=== PATIENT | male | born 1965 | race Caucasian/White ===

== ENCOUNTER → 2017-10-12 | Outpatient (REF) | payer BC ==
[~2017-10-12] MED LIST: FAMO20TA28 PO; IBUP800T37 PO; SUCR1TAB85 PO
[2017-10-12 11:09] LABS: PLATELET COUNT, AUTOMATED 134 K/uL (150-450)
== END ==
PROVIDERS: ATTEND Family Medicine
DX: R07.9 Chest pain, unspecified (principal)
CPT/HCPCS: 82040; 82247; 82310; 82374; 82435; 82565; 82947; 83880; 84075; 84132; 84155; 84295; 84450; 84460; 84484; 84520; 85025; 85379

== ENCOUNTER 2017-10-13 11:45 | Emergency (ER) | payer BC ==
--- NOTE | 2017-10-13 11:48 | ER Report ---
History and Physical Time Seen By MD: 11:47 Hx. of Stated Complaint: sob, chest pain intermittantly since friday HPI/ROS 52 year old sent by urgent care, anxious tachycardic complains of mscp radiated to back. feels like its hard to swallow. no history of the same Remainder of the 14 system rev: Yes Allergies: Coded Allergies: No Known Drug Allergies (Unverified , 10/13/17) Home Meds Active Scripts Sucralfate (CARAFATE) 1 Gm Tablet, 1 GM PO QID, #60 TAB Take before meals and at bedtime. Crush the tablet and mix with water before taking. Prov:CAROLYNN VICKERS 10/13/17 Famotidine (PEPCID) 20 Mg Tablet, 20 MG PO QDAY, #10 TAB Prov:CAROLYNN VICKERS 10/13/17 Reported Medications Ibuprofen (IBUPROFEN) 800 Mg Tablet, 1 TAB PO QAM, TAB 10/13/17 Past Medical/Surgical History Hiatal hernia, appendectomy, chronic back pain Reviewed Nurses Notes: Yes Old Medical Records Reviewed: Yes Hx Smoking: No Exposure to Second Hand Smoke?: No Hx Substance Use Disorder: No Hx Alcohol Use: Yes Family History of: Other Constitutional Vital Sign - Last 24 Hours 10/13/17 10/13/17 10/13/17 10/13/17 11:50 11:51 12:00 12:09 Temp 98.4 Pulse 114 Resp 24 B/P (MAP) 138/82 (100) 138/82 144/88 (106) Pulse Ox 96 O2 Delivery Room Air O2 Flow Rate 2.0 10/13/17 10/13/17 10/13/17 10/13/17 12:15 12:20 12:30 13:00 Pulse 112 Resp 25 B/P (MAP) 109/72 (84) 114/76 (89) 111/60 (77) Pulse Ox 96 10/13/17 10/13/17 10/13/17 10/13/17 13:15 13:30 13:35 14:00 Pulse 101 99 Resp 10 25 B/P (MAP) 113/76 (88) 105/63 (77) Pulse Ox 97 98 10/13/17 10/13/17 10/13/17 10/13/17 14:05 14:30 14:35 15:00 Pulse 97 90 Resp 10 17 B/P (MAP) 106/64 (78) 117/70 (86) Pulse Ox 97 98 10/13/17 10/13/17 15:05 15:17 Pulse 92 Resp 20 B/P (MAP) 115/75 (88) Pulse Ox 97 Intake and Output 10/13/17 10/13/17 10/14/17 15:00 23:00 07:00 Intake Total 300 ml Balance 300 ml Physical Exam 52 year old alert anxious, tenzin tm non reddened throat neck supple no jvd, heart rate tachy, lungs cta, abd soft, no pulsatile mass, vera full peripheral pulses Medical Decision Making Data Points Result Diagram: 10/13/17 1156 10/13/17 1156 Laboratory Hematology Test 10/13/17 11:56 10/13/17 14:25 Red Blood Count 5.26 M/uL (4.00-5.60) Mean Corpuscular Volume 85.9 fL (80.0-96.0) Mean Corpuscular Hemoglobin 30.1 pg (26.0-33.0) Mean Corpuscular Hemoglobin Concent 35.0 g/dL (32.0-36.0) Red Cell Distribution Width 13.2 % (11.5-14.5) Mean Platelet Volume 8.7 fL (7.2-11.1) Neutrophils (%) (Auto) 88.4 % (39.4-72.5) Lymphocytes (%) (Auto) 5.1 % (17.6-49.6) Monocytes (%) (Auto) 5.5 % (4.1-12.4) Eosinophils (%) (Auto) 0.2 % (0.4-6.7) Basophils (%) (Auto) 0.8 % (0.3-1.4) Nucleated RBC Relative Count (auto) 0.0 /100WBC Neutrophils # (Auto) 7.2 K/uL (2.0-7.4) Lymphocytes # (Auto) 0.4 K/uL (1.3-3.6) Monocytes # (Auto) 0.4 K/uL (0.3-1.0) Eosinophils # (Auto) 0.0 K/uL (0.0-0.5) Basophils # (Auto) 0.1 K/uL (0.0-0.1) Nucleated RBC Absolute Count (auto) 0.00 K/uL Prothrombin Time 14.0 seconds (12.0-14.4) Prothromb Time International Ratio 1.08 Activated Partial Thromboplast Time 28 seconds (23-35) D-Dimer Quantitative (PE/DVT) 0.51 ug/ml (0-0.50) Sodium Level 136 mmol/L (137-145) Potassium Level 3.4 mmol/L (3.5-5.0) Chloride Level 102 mmol/L (98-107) Carbon Dioxide Level 19 mmol/L (22-30) Blood Urea Nitrogen 15 mg/dl (9-21) Creatinine 1.00 mg/dl (0.66-1.25) Glomerular Filtration Rate Calc > 60.0 Random Glucose 159 mg/dl (75-110) Calcium Level 8.8 mg/dl (8.4-10.2) Total Bilirubin 1.5 mg/dl (0.2-1.3) Aspartate Amino Transf (AST/SGOT) 60 U/L (0-35) Alanine Aminotransferase (ALT/SGPT) 98 U/L (0-56) Alkaline Phosphatase 82 U/L (0-126) B-Type Natriuretic Peptide 25 pg/ml (0-100) Total Protein 7.3 g/dl (6.3-8.2) Albumin 4.0 g/dl (3.5-5.0) Lipase 91 U/L (23-300) Troponin I < 0.012 ng/ml Chemistry Test 10/13/17 11:56 10/13/17 14:25 White Blood Count 8.1 k/uL (4.5-11.0) Red Blood Count 5.26 M/uL (4.00-5.60) Hemoglobin 15.8 g/dL (14.0-18.0) Hematocrit 45.2 % (42.0-52.0) Mean Corpuscular Volume 85.9 fL (80.0-96.0) Mean Corpuscular Hemoglobin 30.1 pg (26.0-33.0) Mean Corpuscular Hemoglobin Concent 35.0 g/dL (32.0-36.0) Red Cell Distribution Width 13.2 % (11.5-14.5) Platelet Count 140 K/uL (150-450) Mean Platelet Volume 8.7 fL (7.2-11.1) Neutrophils (%) (Auto) 88.4 % (39.4-72.5) Lymphocytes (%) (Auto) 5.1 % (17.6-49.6) Monocytes (%) (Auto) 5.5 % (4.1-12.4) Eosinophils (%) (Auto) 0.2 % (0.4-6.7) Basophils (%) (Auto) 0.8 % (0.3-1.4) Nucleated RBC Relative Count (auto) 0.0 /100WBC Neutrophils # (Auto) 7.2 K/uL (2.0-7.4) Lymphocytes # (Auto) 0.4 K/uL (1.3-3.6) Monocytes # (Auto) 0.4 K/uL (0.3-1.0) Eosinophils # (Auto) 0.0 K/uL (0.0-0.5) Basophils # (Auto) 0.1 K/uL (0.0-0.1) Nucleated RBC Absolute Count (auto) 0.00 K/uL Prothrombin Time 14.0 seconds (12.0-14.4) Prothromb Time International Ratio 1.08 Activated Partial Thromboplast Time 28 seconds (23-35) D-Dimer Quantitative (PE/DVT) 0.51 ug/ml (0-0.50) Glomerular Filtration Rate Calc > 60.0 Calcium Level 8.8 mg/dl (8.4-10.2) Total Bilirubin 1.5 mg/dl (0.2-1.3) Aspartate Amino Transf (AST/SGOT) 60 U/L (0-35) Alanine Aminotransferase (ALT/SGPT) 98 U/L (0-56) Alkaline Phosphatase 82 U/L (0-126) B-Type Natriuretic Peptide 25 pg/ml (0-100) Total Protein 7.3 g/dl (6.3-8.2) Albumin 4.0 g/dl (3.5-5.0) Lipase 91 U/L (23-300) Troponin I < 0.012 ng/ml Coagulation Test 10/13/17 11:56 Prothrombin Time 14.0 seconds Prothromb Time International Ratio 1.08 Activated Partial Thromboplast Time 28 seconds D-Dimer Quantitative (PE/DVT) 0.51 ug/ml EKG/Imaging Imaging FACILITY: [facility] PATIENT NAME: Alfredo Brooks : 1965 MR: [id number] V: [id number] EXAM DATE: ORDERING PHYSICIAN: CAROLYNN VICKERS TECHNOLOGIST: Location: [facility] [place] Patient: Alfredo Brooks : 1965 Visit/Account:[id number] Date of Sevice: 10/13/2017 ABDOMEN/PELVIS WITH CONTRAST HISTORY: sob difficulty swallowing TECHNIQUE: Following administration of IV contrast contiguous axial images acquired through the abdomen/pelvis. Coronal and sagittal reformatting also performed. Dose Lowering Technique One of the following dose optimization techniques was utilized in the performance of this exam: Automated exposure control; adjustment of the mA and/ or kV according to the patient's size; or use of an iterative reconstruction technique. Specific details can be referenced in the facility's radiology CT exam operational policy. CONTRAST: 75 mL Isovue-370 COMPARISON: None. FINDINGS: Visualized lung bases: Small calcified granuloma in the right upper lobe and left lower lobe Hepatobiliary: Negative. Spleen: Borderline enlarged Adrenals: Negative. Pancreas: Negative. Kidneys ureters or bladder: Negative. Genitalia: Surgical clips in the upper right scrotum GI: Negative. Vessels/spaces/nodes: Negative. Bones/soft tissues: Small umbilical hernia containing fat Additional findings: None pertinent. IMPRESSION: Evidence for prior granulomatous process Borderline splenomegaly Report Dictated By: Oneyda Howe MD at 10/13/2017 1:22 PM Report E-Signed By: Oneyda Howe MD at 10/13/2017 1:47 PM WSN:[email or web address]: [facility] PATIENT NAME: Alfredo Brooks : 1965 MR: [id number] V: [id number] EXAM DATE: [id number] ORDERING PHYSICIAN: CAROLYNN VICKERS TECHNOLOGIST: Location: [facility] [place] Patient: Alfredo Brooks : 1965 Visit/Account:[id number] Date of Sevice: 10/13/2017 CT ANGIOGRAM OF THE CHEST WITH INTRAVENOUS CONTRAST, PE PROTOCOL DATE OF EXAM: 10/13/2017 12:03 COMPARISON: None INDICATION: Shortness of breath and tachycardia TECHNIQUE: Contrast enhanced chest CT performed during the injection of 75 ml of Isovue-370. Three-dimensional (MIP) reconstructions were performed. FINDINGS: There is no pulmonary arterial filling defect. Mild dependent atelectasis. No consolidation or pneumothorax. Thyroid: Normal Thoracic inlet: No adenopathy. Heart and great vessels: Coronary atherosclerosis is noted. Heart size is normal. Mediastinum and tim: No mediastinal or hilar adenopathy. Lungs and pleura: As above. Breast and axilla: Minimal symmetric gynecomastia. Bones and soft tissues: No acute osseous abnormality. Upper abdomen: Unremarkable. IMPRESSION: Negative for pulmonary arterial embolus. One of the following dose optimization techniques was utilized in the performance of this exam: Automated exposure control; adjustment of the mA and/ or kV according to the patient's size; or use of an iterative reconstruction technique. Specific details can be referenced in the facility's radiology CT exam operational policy. Report Dictated By: Antione Mullen MD at 10/13/2017 1:50 PM Report E-Signed By: Antione Mullen MD at 10/13/2017 1:59 PM WSN:[id number] ED Course/Re-evaluation Clinical Indication for ER IV: Hydration ED Course differential includes acs, pe and dissecting aortic aneurysm. these were disproved w imaging and lab, will send to surg for egd. nothing positive in todays reid. home w pepcid and carafate Re-evaluation pain free on dismissal Decision to Disposition Date: Oct 13, 2017 Decision to Disposition Time: 15:10 Depart Departure Latest Vital Signs Vital Signs Date Time Temp Pulse Resp B/P (MAP) Pulse Ox O2 Delivery O2 Flow Rate FiO2 10/13/17 15:17 115/75 (88) 10/13/17 15:05 92 20 97 10/13/17 12:09 2.0 10/13/17 11:51 98.4 Room Air Impression: Primary Impression: Atypical chest pain Additional Impression: Gastritis Condition: Improved Disposition: HOME OR SELF-CARE Referrals: KASHIF SINGH MD 1 Day New Scripts Sucralfate (CARAFATE) 1 Gm Tablet 1 GM PO QID, #60 TAB Take before meals and at bedtime. Crush the tablet and mix with water before taking. Prov: CAROLYNN VICKERS 10/13/17 Famotidine (PEPCID) 20 Mg Tablet 20 MG PO QDAY, #10 TAB Prov: CAROLYNN VICKERS 10/13/17 Departure Forms: ER Transition Record, Medications Reconciliation, Patient Portal Information Patient Instructions: Gastritis (ED) Additional Instructions: Call Dr. Bowen's office for close follow-up for an EGD, follow-up with your primary care provider for further testing for your atypical chest pain Problem Qualifiers CAROLYNN VICKERS Oct 13, 2017 11:48
[2017-10-13] MEDS ORDERED: NS(*) 0.9% 1000 ML BAG 1,000 ML IV ONE (12:03)
[2017-10-13] MEDS ORDERED: ASPIRIN 81 MG CHEW PO ONE (12:05)
[2017-10-13] MEDS ORDERED: NITROGLYCERIN 0.4 MG SUBL SL SCH (12:05)
[2017-10-13] MEDS ORDERED: IBUP800T37 PO (12:06)
--- NOTE | 2017-10-13 12:07 | EKG ---
FACILITY: [facility] - [place] PATIENT NAME: ZA CARRASQUILLO : [id number] MR: [id number] V: [id number] EXAM DATE: ORDERING PHYSICIAN: CAROLYNN VICKERS TECHNOLOGIST: ONELIA Wolf Reason : Blood Pressure : / mmHG Vent. Rate : 110 BPM Atrial Rate : 110 BPM P-R Int : 146 ms QRS Dur : 090 ms QT Int : 316 ms P-R-T Axes : 052 043 019 degrees QTc Int : 427 ms Sinus tachycardia Otherwise normal ECG When compared with ECG of 26-NOV-2016 11:53, Vent. rate has increased BY 52 BPM T wave amplitude has decreased in Anterolateral leads Confirmed by KASHIF RAMOS ([id number]) on 10/14/2017 6:26:59 AM Referred By: Confirmed By:KASHIF RAMOS
[2017-10-13 12:17] LABS: PLATELET COUNT, AUTOMATED 140 K/uL (150-450)
[2017-10-13 12:26] LABS: INR 1.08
[2017-10-13] MEDS ORDERED: IOPAMIDOL 76% 75 ML INFUS BTL 75 ML ONE (12:33)
[2017-10-13] MEDS ORDERED: NS 0.9% 25 ML BAG 50 ML ONE (12:35)
--- NOTE | 2017-10-13 13:51 | RADIOLOGY IMAGING REPORT ---
FACILITY: [facility] [place] PATIENT NAME: Alfredo Brooks : 1965 MR: [id number] V: [id number] EXAM DATE: ORDERING PHYSICIAN: CAROLYNN VICKERS TECHNOLOGIST: Location: [facility] [place] Patient: Alfredo Brooks : 1965 Visit/Account:[id number] Date of Sevice: 10/13/2017 ABDOMEN/PELVIS WITH CONTRAST HISTORY: sob difficulty swallowing TECHNIQUE: Following administration of IV contrast contiguous axial images acquired through the abdom en/pelvis. Coronal and sagittal reformatting also performed. Dose Lowering Technique One of the following dose optimization techniques was utilized in the performance of this exam: Autom ated exposure control; adjustment of the mA and/or kV according to the patient's size; or use of an i terative reconstruction technique. Specific details can be referenced in the facility's radiology C T exam operational policy. CONTRAST: 75 mL Isovue-370 COMPARISON: None. FINDINGS: Visualized lung bases: Small calcified granuloma in the right upper lobe and left lower lobe Hepatobiliary: Negative. Spleen: Borderline enlarged Adrenals: Negative. Pancreas: Negative. Kidneys ureters or bladder: Negative. Genitalia: Surgical clips in the upper right scrotum GI: Negative. Vessels/spaces/nodes: Negative. Bones/soft tissues: Small umbilical hernia containing fat Additional findings: None pertinent. IMPRESSION: Evidence for prior granulomatous process Borderline splenomegaly Report Dictated By: Oneyda Howe MD at 10/13/2017 1:22 PM Report E-Signed By: Oneyda Howe MD at 10/13/2017 1:47 PM WSN:[email or web address]
--- NOTE | 2017-10-13 14:04 | RADIOLOGY IMAGING REPORT ---
FACILITY: [facility] - [place] PATIENT NAME: Alfredo Brooks : 1965 MR: [id number] V: [id number] EXAM DATE: ORDERING PHYSICIAN: CAROLYNN VICKERS TECHNOLOGIST: Location: [facility] Patient: Alfredo Brooks : 1965 Visit/Account:[id number] Date of Sevice: 10/13/2017 CT ANGIOGRAM OF THE CHEST WITH INTRAVENOUS CONTRAST, PE PROTOCOL DATE OF EXAM: 10/13/2017 12:03 COMPARISON: None INDICATION: Shortness of breath and tachycardia TECHNIQUE: Contrast enhanced chest CT performed during the injection of 75 ml of Isovue-370. Three-d imensional (MIP) reconstructions were performed. FINDINGS: There is no pulmonary arterial filling defect. Mild dependent atelectasis. No consolidation or pneumo thorax. Thyroid: Normal Thoracic inlet: No adenopathy. Heart and great vessels: Coronary atherosclerosis is noted. Heart size is normal. Mediastinum and tim: No mediastinal or hilar adenopathy. Lungs and pleura: As above. Breast and axilla: Minimal symmetric gynecomastia. Bones and soft tissues: No acute osseous abnormality. Upper abdomen: Unremarkable. IMPRESSION: Negative for pulmonary arterial embolus. One of the following dose optimization techniques was utilized in the performance of this exam: Autom ated exposure control; adjustment of the mA and/or kV according to the patient's size; or use of an i terative reconstruction technique. Specific details can be referenced in the facility's radiology C T exam operational policy. Report Dictated By: Antione Mullen MD at 10/13/2017 1:50 PM Report E-Signed By: Antione Mullen MD at 10/13/2017 1:59 PM WSN:[id number]
[2017-10-13] MEDS ORDERED: GI COCKTAIL 60 ML BTL PO STA (14:09)
[2017-10-13] MEDS ORDERED: FAMOTIDINE(*) 20MG/50ML PREMIX 50 ML IVPB ONE (14:20)
[2017-10-13] MEDS ORDERED: LIDOCAINE 2% VISC SLN 15ML UDC PO ONE (14:25)
[2017-10-13] MEDS ORDERED: ATRO/SCOPOL/HYOSCY/PB 5 ML ELX PO ONE (14:25)
[2017-10-13] MEDS ORDERED: MAG HYD/AL HYD/SIMETH 30ML UDC PO ONE (14:25)
--- NOTE | 2017-10-13 14:31 | EKG ---
FACILITY: [facility] PATIENT NAME: ZA CARRASQUILLO : [id number] MR: [id number] V: [id number] EXAM DATE: ORDERING PHYSICIAN: CAROLYNN VICKERS TECHNOLOGIST: ONELIA Wolf Reason : Blood Pressure : / mmHG Vent. Rate : 095 BPM Atrial Rate : 095 BPM P-R Int : 142 ms QRS Dur : 092 ms QT Int : 344 ms P-R-T Axes : 054 041 014 degrees QTc Int : 432 ms Normal sinus rhythm Normal ECG When compared with ECG of 13-OCT-2017 12:01, No significant change was found Confirmed by KASHIF RAMOS ([id number]) on 10/14/2017 6:27:28 AM Referred By: Confirmed By:KASHIF RAMOS
[2017-10-13] MEDS ORDERED: SUCR1TAB85 PO (15:05)
[2017-10-13] MEDS ORDERED: FAMO20TA28 PO (15:05)
[2017-10-13 15:17] VITALS: BP 115/75
[2017-10-14] MEDS ORDERED: OMEP40CA48 PO (12:07)
== END 2017-10-13 15:27 | disposition home or self-care (01) ==
LOC: ER 11:51
DX: R07.89 Other chest pain (principal); K29.70 Gastritis, unspecified, without bleeding; R00.0 Tachycardia, unspecified
CPT/HCPCS: 36415; 71275; 74177; 83690; 83880; 84484; 85025; 85379; 85610; 85730; 93005; 96361; 96365; 99285; J3490; J7030; Q9967; 82040; 82247; 82310; 82374; 82435; 82565; 82947; 84075; 84132; 84155; 84295; 84450; 84460; 84520

== ENCOUNTER 2017-10-14 12:25 | Inpatient (IN) | payer BC ==
[~2017-10-14] VITALS: Ht 177.8 cm; Wt 93.4 kg
[~2017-10-14 12:25] MED LIST changes: +OMEP40CA48 PO
[2017-10-14] MEDS ORDERED: HYDROmorphone PCA 6 MG/30 ML IV PRN (13:10)
[2017-10-14] MEDS ORDERED: ONDANSETRON 4 MG/2 ML VIAL IVP PRN (13:10)
[2017-10-14] MEDS ORDERED: NALOXONE HCL 0.4 MG/ML VIAL IVP PRN (13:10)
[2017-10-14] MEDS ORDERED: PROMETHAZINE 25 MG/ML 1 ML AMP IVP PRN (13:10)
[2017-10-14] MEDS ORDERED: FLUSH 10 ML SYR IVP PRN (13:10)
[2017-10-14] MEDS ORDERED: DIATRIZOATE MEGL/DIATRIZOA SOD 120 ML SOLN PO ONE (13:32)
[2017-10-14] MEDS ORDERED: BARIUM SULFATE 340 GM POWD ONE (13:32)
[2017-10-14] MEDS ORDERED: BARIUM SULFATE 176 GM BTL PO ONE (13:32)
[2017-10-14 13:39] VITALS: BP 128/80
--- NOTE | 2017-10-14 13:47 | Gen Surgery H&P BLANK ---
GENERAL SURGERY H&P BLANK Chief Complaint: ER F/U Swallowing Problem. EGD Consult Reviewed by: Dr. Kashif Singh Vitals: Height 5 ft 11 in / 180.34 cm Weight 208 lbs 4 oz / 94.619531 kg BSA 2.20 m2 BMI 29.0 kg/m2 Temperature 102.6 F / 39.22 C - Temporal Pulse 116 Respirations 15 Blood Pressure 113/77 Sitting, Left Arm Pulse Oximetry 94%, RA Pain Ratin Pain Scale: Number Location / Description of Pain when swallowing Medications and Allergies Medications Last Reconciled on 10/14/17 12:07 by LEONARDA PATEL, RN Omeprazole (OMEPRAZOLE) Unknown Strength Capsule.dr JACMKAN QDAY, CAP Reported 10/14/17 Sucralfate (CARAFATE) 1 Gm Tablet 1 GM PO QID, #60 TAB Prov: CAROLYNN VICKERS APRN-Steve 10/13/17 Famotidine (PEPCID) 20 Mg Tablet 20 MG PO QDAY, #10 TAB Prov: CAROLYNN VICKERS 10/13/17 Ibuprofen (IBUPROFEN) 800 Mg Tablet 1 TAB PO QAM, TAB Reported 10/13/17 Allergies: Coded Allergies: No Known Drug Allergies (Unverified , 10/13/17) Past History (PFSH) - General Past, Family, & Social History Past Surgical History Genitourinary: Reports hx of: vasectomy R. knee - 2017 Family History Family History: FH: hepatitis MOTHER, , Age:72 Tobacco Use Smoking Status: Never Smoker Exposure to Second Hand Smoke?: No Smokeless Tobacco Used: Never Alcohol Use Alcohol Use: Never Substance Use Social Drug Use: Never HPI - GI complaint* History of Present Illness History of Present Illness HPI Comment 52-year-old male presents with 5 days of dysphagia with lower chest pain going through to his back. He has a long history of intermittent dysphagia. He was eating a hamburger 5 days ago and it seemed to pass without problems but then he developed subsequent significant lower chest pain. He was seen in urgent care and felt a little better but then worsened and yesterday was seen in the emergency room. He underwent a chest CT as well as a CT of his abdomen and pelvis. These were relatively unremarkable and did not reveal any evidence of extraluminal gas or inflammation. He was started on PPI therapy and Carafate. He notes that he has been limited to drinking fluids. He's had 2 eggs but little else to eat. He feels that when he eats, the food hits his mid chest and seems to stop. He has been having fevers and chills. No constipation or diarrhea. His bowels are moving normally. He is urinating without problems. He' s had no abdominal pain. He denies any nausea or vomiting, no hematemesis. Review of Systems Review of Systems Constitutional Constitutional ROS: Reports: night sweats, fever, chills, Denies: unintentional weight loss, other Neurological Neurological ROS: Denies: lightheadedness/dizziness, vertigo, other Eyes EYE ROS: Denies: new/intermitt vision prob, scleral icterus, other Ears, Nose and Throat ENT ROS: Denies: recurring epistaxis, hoarseness, other Cardiopulmonary Cardiopulmonary ROS: Reports: chest pain, Denies: chronic cough, shortness of breath, hemoptysis, claudication, lower extremity edema, other Gastrointestinal Gastrointestinal ROS: Reports: dysphagia, Denies: nausea, vomiting, early satiety, diarrhea, hematemesis, abdominal pain, constipation, hematochezia, regurgitation, melena, other Genitourinary Genitourinary ROS: Denies: dysuria, hematuria, other Musculoskeletal Musculoskeletal ROS: Denies: joint pain, muscle pain ROS Reviewed by ROS Reviewed by: Dr. Kashif Singh Exam Exam General Appearance: Alert, Awake, No Acute Distress, Afebrile Neuro: No Gross deficits Eyes: PERRLA Cardiovascular: Regular Rate and Rhythm (tachycardic) Respiratory: Clear to Auscultation GI: Abd Soft and Non-Tender Extremities: Warm, Perfused Assessment and Plan Assessment and Plan Ambulatory Assessment/Plan: Esophageal injury Injury of esophagus, initial encounter - S27.819A Encounter type: initial encounter Atypical chest pain - R07.89 Notes Patient is having fevers, he is 102.6 Fahrenheit here in the office as well as a pulse of 116. This in conjunction with his chest pain with back pain and subjective fevers and chills with inability to eat, I recommended admission to the hospital. He is agreeable with this plan. We will admit him, deep him nothing by mouth, start IV fluids, check basic labs, start PPI IV, start IV antibiotics to treat for possible esophageal injury that can progress to mediastinitis given his fevers, chills, and other symptoms. We'll get a water- soluble esophagram today and if there is no evidence of extraluminal contrast then they can use barium. We'll plan on EGD tomorrow or the next day. He is agreeable with this plan. Venous Thromboembolism VTE Risk Physician Assess for VTE Risk: Yes Patient's VTE Risk: Low VTE Diagnostic Test 2 Days Prior to Admit: No Antithrombotics Is Pt On Any Antithrombotics?: No KASHIF SINGH MD Oct 14, 2017 13:47
[2017-10-14] MEDS: ACETAMINOPHEN(*)1000 MG/100 ML 100 ML IVPB PRN ×2 (13:53→23:25)
[2017-10-14] MEDS: PIPERACILLIN/TAZO*3.375GM VIAL 3.375 GM in NS(*) 0.9% 100 ML ADDVANT BAG 100 ML IVPB SCH ×2 (14:34→20:19)
[2017-10-14 14:53] VITALS: Ht 177.8 cm; Wt 93.4 kg
[2017-10-14 15:20] LABS: PLATELET COUNT, AUTOMATED 130 K/uL (150-450)
[2017-10-14 16:20] VITALS: BP 114/76
[2017-10-14] MEDS ORDERED: PANTOPRAZOLE SOD 40 MG IV VIAL IVP ONE (16:30)
[2017-10-14] MEDS: NS(*) 0.9% 1000 ML BAG 1,000 ML IV PRN (16:43)
--- NOTE | 2017-10-14 17:34 | RADIOLOGY IMAGING REPORT ---
FACILITY: [facility] - [place] PATIENT NAME: Alfredo Brooks : 1965 MR: [id number] V: [id number] EXAM DATE: ORDERING PHYSICIAN: KASHIF SINGH TECHNOLOGIST: Location: [facility] Patient: Alfredo Brooks : 1965 Visit/Account:[id number] Date of Sevice: 10/14/2017 Exam type: ESOPHAGRAM History: Dysphagia, chest pain, fevers, r/o perforation Comparison: None. Findings: The patient was first given a Gastrografin suspension to swallow in light of the concern for possible esophageal perforation. There is no evidence of esophageal perforation or pneumomediastinum. The patient then received both thick and thin barium as an oral contrast. Extensive mucosal irregula rity was seen throughout the esophagus particularly the midesophagus which is best appreciated in ser ies 5, six, seven and eight. Is a possible ulceration in the midesophagus just above the level of th e tristan; this is best seen in series 7 and eight and nine. Gastro-esophageal reflux was not observed The fluoroscopy dose area product was 442.13 micro-Thomas per meter squared IMPRESSION: 1. No evidence of esophageal perforation Extensive mucosal irregularity was seen throughout the esophagus particularly in the mid portion as d escribed above. This finding is concerning for esophagitis. There is a possible ulceration in the m idesophagus just above the level of the tristan Report Dictated By: Oneyda Howe MD at 10/14/2017 5:21 PM Report E-Signed By: Oneyda Howe MD at 10/14/2017 5:29 PM WSN:[email or web address]
[2017-10-14 18:46] VITALS: BP 120/83
[2017-10-14 23:01] VITALS: BP 116/56
[2017-10-14] MEDS: HYDROmorphone HCL 2 MG/ML SDV IVP PRN (23:25)
[2017-10-15] VITALS (14 sets, daily range): BP systolic 98–144; BP diastolic 60–89
[2017-10-15] MEDS: PIPERACILLIN/TAZO*3.375GM VIAL 3.375 GM in NS(*) 0.9% 100 ML ADDVANT BAG 100 ML IVPB SCH ×4 (01:56→20:14)
[2017-10-15 06:11] LABS: PLATELET COUNT, AUTOMATED 114 K/uL (150-450)
[2017-10-15] MEDS: HYDROmorphone HCL 2 MG/ML SDV IVP PRN ×3 (06:18→20:13)
--- NOTE | 2017-10-15 07:09 | General Surgery Progress Note ---
Subjective Progress Notes Subjective No new complaints. Had pain overnight in his lower chest even though he hasn't eaten, took some dilaudid. Now better. Physical Exam Vital Signs Date Time Temp Pulse Resp B/P (MAP) Pulse Ox O2 Delivery O2 Flow Rate FiO2 10/15/17 02:02 98.5 16 87 Room Air 1.0 10/14/17 23:01 97 116/56 (76) General Appearance: Alert, Awake, No Acute Distress, Afebrile GI: Soft and Non-Tender Extremities: Warm, Perfused Result Diagram: 10/15/17 0548 10/15/1748 Assessment and Plan Problems: (1) Esophageal injury Status: Acute Assessment & Plan: 10/15/17: Doing well. WBC down, left shift resolved. Fever last night, afebrile this morning. Vitals look good. Esophagram reveals very "ratty" appearing esophagus, possibly esophagitis, possible esophageal ulcers. Will proceed with EGD today. Pt agreeable with this plan. Will hold off on diet until after EGD. (2) Atypical chest pain Status: Acute Condition Stable. Time Spent: < 30 min Exam Sepsis Risk: No Definite Risk Problem Qualifiers (1) Esophageal injury: Encounter type: subsequent encounter Qualified Codes: S27.819D - Unspecified injury of esophagus (thoracic part), subsequent encounter KASHIF SINGH MD Oct 15, 2017 07:09
[2017-10-15] MEDS: ACETAMINOPHEN(*)1000 MG/100 ML 100 ML IVPB PRN ×2 (08:48→20:22)
[2017-10-15] MEDS: NS(*) 0.9% 1000 ML BAG 1,000 ML IV PRN ×2 (08:53→20:23)
[2017-10-15] MEDS ORDERED: PANTOPRAZOLE SOD 40 MG IV VIAL IVP SCH (09:00)
[2017-10-15] MEDS ORDERED: NORMOSOL R SOLN(*) 1000 ML BAG 1,000 ML IV ONE (12:27)
--- NOTE | 2017-10-15 14:10 | Medical Nutrition Therapy ---
Nutrition Anthropometrics Height (Inches): 70.00 Height (Calculated Centimeters: 177.907241 Weight (Pounds): 206 Weight (Calculated Kilograms): 93.440 Ace Nutrition Score: Excellent Ace Nutrition Risk Score: 23 Dietary Referral Nutrition Risk Factors: Diff. Swallowing, Special Diet Nutrition Risk Comment: NPO Physical Findings Physical Appearance: Overweight BMI 25-29 Skin Appearance Skin Appearance: Edema Edema Location Modifier: Edema Location: Type of Edema: Degree of Edema: Gastrointestinal Symptoms GI Symtoms: Change in Bowel Pattern Tube Present: Bowel Sounds: Recent Bowel Pattern: Stool Characteristics: Nutrition/Food History Difficulty Swallowing Nutritional Diagnosis Nutritional Risk Acuity 2: Dysphagia Nutritional Risk Acuity 3: Gastritis/Gastroenteritis Past Medical History: Gastritis, atypical chest pain, esophageal injury Nutritional Acuity: 2-Moderate Nutrition Diagnosis: Inadequate Food Intake Nutrition Problem/Etiology/Sym: Inadequate oral intake related to dysphagia as evidence by pt having a hard time consuming liquid beverages and diet ordered NPO. Energy Requirement: 2171 ([place] Adj BMI >27.5 AF 1.3 ) Protein Requirement: 93 (1g/kg) Fluid Requirement: 2790 (30ml/kcal ) Diet Type: NPO (Nothing by Mouth) Nutrition Intervention: Incr diet as tolerated Nutrition Monitoring & Eval Nutrition Goals: Eat 50-100% Meal RD Patient Assessment Time: [address] Assessment Type: RD Assessment Patient Nutrition Acuity: 2-Moderate Follow Up Date: Oct 17, 2017 Nutritional Comment: 10/14 Pt admitted for dysphagia and chest pain.Pt has chills and fever of 102.6F. Pt states over the past 5 days it has been difficult to swallow food, especially liquids. Pt has hx of intermittent dysphagia. Pt is on NPO diet. No lab values taken at this time. Will continue to monitor pt progress and diet advancement. -SC 10/15 No complaints or fever this morning. Pt is scheduled for EGD sometime today, once that is done possible diet change. Pt is on 2 day NPO. Per doctor note pt may possible have esophagitis or ulcers. Pt has elevated LFTS and slight low alb (3.2). Will continue to monitor pt progress, labs and diet advancement.-SC ANTOINETTE SPENCER Oct 15, 2017 08:25
[2017-10-15] MEDS ORDERED: PROPOFOL EMUL(*) 10MG/ML 20 ML 40 ML ONE (17:11)
[2017-10-15] MEDS ORDERED: LIDOCAINE MPF 1% 5 ML VIAL ONE (17:11)
[2017-10-15] MEDS: NYSTATIN 5 ML UDCUP PO SCH ×2 (18:12→20:22)
[2017-10-15] MEDS: SUCRALFATE 1 GM TAB PO SCH (20:23)
[2017-10-15] MEDS: PANTOPRAZOLE SOD 40 MG IV VIAL IVP SCH (20:23)
[2017-10-16] MEDS: PIPERACILLIN/TAZO*3.375GM VIAL 3.375 GM in NS(*) 0.9% 100 ML ADDVANT BAG 100 ML IVPB SCH ×4 (01:36→19:32)
[2017-10-16 02:26] VITALS: BP 120/70
[2017-10-16] MEDS: HYDROmorphone HCL 2 MG/ML SDV IVP PRN ×2 (02:26→22:18)
[2017-10-16] MEDS: SUCRALFATE 1 GM TAB PO SCH ×4 (05:49→21:04)
[2017-10-16 06:50] VITALS: BP 118/76
[2017-10-16] MEDS: NS(*) 0.9% 1000 ML BAG 1,000 ML IV PRN (06:52)
[2017-10-16 07:00] LABS: PLATELET COUNT, AUTOMATED 132 K/uL (150-450)
[2017-10-16] MEDS ORDERED: NS(*) 0.9% 1000 ML BAG 1,000 ML IV PRN (08:19)
[2017-10-16] MEDS: PANTOPRAZOLE SOD 40 MG IV VIAL IVP SCH ×2 (08:26→21:05)
[2017-10-16] MEDS: NYSTATIN 5 ML UDCUP PO SCH ×4 (08:26→21:08)
[2017-10-16 11:32] VITALS: BP 118/76
[2017-10-16] MEDS: ACETAMINOPHEN(*)1000 MG/100 ML 100 ML IVPB PRN ×2 (13:26→19:32)
[2017-10-16 15:32] VITALS: BP 128/69
--- NOTE | 2017-10-16 15:36 | General Surgery Progress Note ---
Subjective Progress Notes Subjective Feeling pretty good today. Some liquids hurt his esophagus as they pass. Beef broth feels good. Overall, feeling better. Physical Exam Vital Signs Date Time Temp Pulse Resp B/P (MAP) Pulse Ox O2 Delivery O2 Flow Rate FiO2 10/16/17 11:32 99.7 89 24 118/76 (90) 92 Room Air 10/16/17 02:26 1.0 Intake and Output 10/17/17 07:00 Intake Total 880 ml Balance 880 ml Intake Oral 580 ml IV Total 300 ml # Voids 2 General Appearance: Alert, Awake, No Acute Distress, Afebrile GI: Soft and Non-Tender Extremities: Warm, Perfused Result Diagram: 10/16/17 0637 10/16/17 0637 Assessment and Plan Problems: (1) Esophageal injury Status: Acute Assessment & Plan: 10/15/17: Doing well. WBC down, left shift resolved. Fever last night, afebrile this morning. Vitals look good. Esophagram reveals very "ratty" appearing esophagus, possibly esophagitis, possible esophageal ulcers. Will proceed with EGD today. Pt agreeable with this plan. Will hold off on diet until after EGD. 10/16/17: Doing better. Labs and vitals look good. Will try soft diet. If he does well with this then tomorrow will try converting him to PO meds, liquid, if possible. If he does well on liquid/po meds and diet then home later tomorrow vs Friday. (2) Atypical chest pain Status: Acute Condition Stable. Time Spent: < 30 min Exam Sepsis Risk: No Definite Risk Problem Qualifiers (1) Esophageal injury: Encounter type: subsequent encounter Qualified Codes: S27.819D - Unspecified injury of esophagus (thoracic part), subsequent encounter KASHIF SINGH MD Oct 16, 2017 15:36
[2017-10-16 19:27] VITALS: BP 132/78
[2017-10-16 22:24] VITALS: BP 147/85
[2017-10-17] MEDS: PIPERACILLIN/TAZO*3.375GM VIAL 3.375 GM in NS(*) 0.9% 100 ML ADDVANT BAG 100 ML IVPB SCH (01:57)
[2017-10-17 02:43] VITALS: BP 128/80
[2017-10-17] MEDS: HYDROmorphone HCL 2 MG/ML SDV IVP PRN ×2 (03:02→20:57)
[2017-10-17] MEDS: SUCRALFATE 1 GM TAB PO SCH ×4 (05:53→20:32)
[2017-10-17] MEDS ORDERED: LANSOPRAZOLE 3 MG/ML PO ONE (08:00)
[2017-10-17 08:34] VITALS: BP 122/83
[2017-10-17] MEDS: LANSOPRAZOLE 3 MG/ML PO SCH (08:47)
[2017-10-17] MEDS: AMOX/CLAV 400 MG/5 ML 50ML BTL PO SCH ×2 (09:40→20:31)
[2017-10-17] MEDS: NYSTATIN 5 ML UDCUP PO SCH ×4 (09:40→20:32)
[2017-10-17 11:13] VITALS: BP 117/83
--- NOTE | 2017-10-17 11:20 | Medical Nutrition Therapy ---
Nutrition Anthropometrics Height (Inches): 70.00 Height (Calculated Centimeters: 177.844469 Weight (Pounds): 206 Weight (Calculated Kilograms): 93.440 Ace Nutrition Score: Adequate Ace Nutrition Risk Score: 22 Dietary Referral Nutrition Risk Factors: Diff. Swallowing, Special Diet Nutrition Risk Comment: NPO Physical Findings Physical Appearance: Overweight BMI 25-29 Skin Appearance Skin Appearance: Edema Edema Location Modifier: Edema Location: Type of Edema: Degree of Edema: Gastrointestinal Symptoms GI Symtoms: Bloating, Diarrhea, Change in Bowel Pattern Tube Present: Bowel Sounds: Recent Bowel Pattern: Stool Characteristics: Nutritional Diagnosis Nutritional Risk Acuity 2: Dysphagia, Swallowing Problem Nutritional Risk Acuity 3: Gastritis/Gastroenteritis Past Medical History: Gastritis, atypical chest pain, esophageal injury Nutritional Acuity: 2-Moderate Nutrition Diagnosis: Swallowing Difficulties Nutrition Problem/Etiology/Sym: Swallowing difficulites related to esphagial injury as evidence by pt having problems consuming solids with intake 25% . Energy Requirement: 2171 (Lovell [place] Adj BMI >27.5 AF 1.3 ) Protein Requirement: 93 (1g/kg) Fluid Requirement: 2790 (30ml/kcal ) Diet Type: [place]/Soft Nutrition Intervention: Incr diet as tolerated Food Likes: CREM OF WHEAT, ASK PT IF HE WOULD LIKE HIS MEAT GROUND Food Dislikes: NO RAW FRUITS/VEG, NOTHING THAT WOULD SCRATCH HIS THROAT Additional Diet Restrictions: OFFER NUTR SUPPLMENTS Diet Comment To RSA: PT DOES BEST WITH SMOOTH TEXTURES Nutrition Monitoring & Eval Nutrition Goals: Eat 75-100% Meal Nutrition Follow-Up: Poor Intake RD Patient Assessment Time: [address] Assessment Type: RD Re-Assessment Patient Nutrition Acuity: 2-Moderate Follow Up Date: Oct 21, 2017 Nutritional Comment: 10/14 Pt admitted for dysphagia and chest pain.Pt has chills and fever of 102.6F. Pt states over the past 5 days it has been difficult to swallow food, especially liquids. Pt has hx of intermittent dysphagia. Pt is on NPO diet. No lab values taken at this time. Will continue to monitor pt progress and diet advancement. -MT 10/15 No complaints or fever this morning. Pt is scheduled for EGD sometime today, once that is done possible diet change. Pt is on 2 day NPO. Per doctor note pt may possible have esophagitis or ulcers. Pt has elevated LFTS and slight low alb (3.2). Will continue to monitor pt progress, labs and diet advancement.-MT 10/18 Diet changed to bland/soft. Pt is eating 25%. Pt states he is still having difficulites with swallow. Smooth textures seem to be easier for pt to swallow. Encouraged pt to try ground meats until he feels more comfortable with meat and then to chew very well. Will offer nutr supplement to increase kcal and protein intake. Will cont to monitor and encourage intake. REID VILLEGAS Oct 17, 2017 10:26
[2017-10-17] MEDS: ACETA/CODEIN ELIX 120-12MG/5ML PO PRN (14:59)
[2017-10-17 15:02] VITALS: BP 137/87
[2017-10-17 19:19] VITALS: BP 130/77
[2017-10-18] VITALS (7 sets, daily range): BP systolic 113–126; BP diastolic 76–99
[2017-10-18] MEDS: ACETA/CODEIN ELIX 120-12MG/5ML PO PRN ×5 (00:09→23:06)
[2017-10-18] MEDS: SUCRALFATE 1 GM TAB PO SCH ×4 (06:17→21:52)
[2017-10-18] MEDS: LANSOPRAZOLE 3 MG/ML PO SCH (06:18)
[2017-10-18] MEDS: NYSTATIN 5 ML UDCUP PO SCH ×4 (08:55→21:53)
[2017-10-18] MEDS: AMOX/CLAV 400 MG/5 ML 50ML BTL PO SCH ×2 (08:56→21:52)
--- NOTE | 2017-10-18 08:56 | General Surgery Progress Note ---
Subjective Progress Notes Subjective Continues to have lower chest and epigastric pain that is episodic with intervening times without symptoms. He's figuring out which foods/drinks he can eat that don't exacerbate his symptoms. Physical Exam Vital Signs Date Time Temp Pulse Resp B/P (MAP) Pulse Ox O2 Delivery O2 Flow Rate FiO2 10/18/17 04:55 98.1 85 15 117/84 (95) 94 10/18/17 00:12 Room Air 10/17/17 02:43 1.0 General Appearance: Alert, Awake, No Acute Distress, Afebrile GI: Soft and Non-Tender Extremities: Warm, Perfused Result Diagram: 10/16/17 0637 10/16/17 0637 Assessment and Plan Problems: (1) Esophageal injury Status: Acute Assessment & Plan: 10/15/17: Doing well. WBC down, left shift resolved. Fever last night, afebrile this morning. Vitals look good. Esophagram reveals very "ratty" appearing esophagus, possibly esophagitis, possible esophageal ulcers. Will proceed with EGD today. Pt agreeable with this plan. Will hold off on diet until after EGD. 10/16/17: Doing better. Labs and vitals look good. Will try soft diet. If he does well with this then tomorrow will try converting him to PO meds, liquid, if possible. If he does well on liquid/po meds and diet then home later tomorrow vs Friday. 10/17/17: Doing better but still with intermittent lower chest symptoms. Will convert to PO liquid meds and see how he does on these. 10/18/17: Continued improvement but still with intermittent symptoms. No fevers. Tolerating PO meds. Still not eating or drinking much. Will continue to work on PO intake today. He can go home when he is eating/drinking enough to maintain his hydration. Will recheck this afternoon. (2) Atypical chest pain Status: Acute Condition Stable. Time Spent: < 30 min Exam Sepsis Risk: No Definite Risk Problem Qualifiers (1) Esophageal injury: Encounter type: subsequent encounter Qualified Codes: S27.819D - Unspecified injury of esophagus (thoracic part), subsequent encounter KASHIF SINGH MD Oct 18, 2017 08:56
[2017-10-18] MEDS: HYDROmorphone HCL 2 MG/ML SDV IVP PRN (14:09)
[2017-10-18] MEDS: HYOSCYAMINE SULF*0.125 MG SUBL SL SCH ×2 (17:32→21:53)
[2017-10-19 03:44] VITALS: BP 107/73
[2017-10-19] MEDS: ACETA/CODEIN ELIX 120-12MG/5ML PO PRN (04:37)
[2017-10-19] MEDS: HYOSCYAMINE SULF*0.125 MG SUBL SL SCH (07:31)
[2017-10-19] MEDS: SUCRALFATE 1 GM TAB PO SCH (07:31)
[2017-10-19] MEDS: LANSOPRAZOLE 3 MG/ML PO SCH (07:38)
[2017-10-19 07:59] VITALS: BP 107/79
[2017-10-19] MEDS ORDERED: Nystatin 5 Ml Udcup PO (09:16)
[2017-10-19] MEDS ORDERED: HYOS0.1224 SL (09:16)
[2017-10-19] MEDS ORDERED: AMOX400S72 PO (09:16)
[2017-10-19] MEDS ORDERED: LANSOPRAZOLE 3 MG/ML PO (09:16)
[2017-10-19] MEDS ORDERED: ACET118E5 PO (09:16)
[2017-10-19] MEDS ORDERED: SUCR1ORA17 PO (09:16)
--- NOTE | 2017-10-19 09:22 | Short(Outpt) Discharge Summary ---
Discharge Summary Reason for Hosp/Final Diag: (1) Esophageal injury Status: Acute Hospital Course & Plan: 10/15/17: Doing well. WBC down, left shift resolved. Fever last night, afebrile this morning. Vitals look good. Esophagram reveals very "ratty" appearing esophagus, possibly esophagitis, possible esophageal ulcers. Will proceed with EGD today. Pt agreeable with this plan. Will hold off on diet until after EGD. 10/16/17: Doing better. Labs and vitals look good. Will try soft diet. If he does well with this then tomorrow will try converting him to PO meds, liquid, if possible. If he does well on liquid/po meds and diet then home later tomorrow vs Friday. 10/17/17: Doing better but still with intermittent lower chest symptoms. Will convert to PO liquid meds and see how he does on these. 10/18/17: Continued improvement but still with intermittent symptoms. No fevers. Tolerating PO meds. Still not eating or drinking much. Will continue to work on PO intake today. He can go home when he is eating/drinking enough to maintain his hydration. Will recheck this afternoon. 10/19/17: Pt feeling better this morning. Less chest and back pain. Tolerating diet. Wishes to go home. Will d/c to home with follow up in my office later this week. (2) Atypical chest pain Status: Acute Departure Discharge to: Home, Self Care Discharge Instructions Home Meds Active Scripts Sucralfate (CARAFATE) 1 Gm/10 Ml Oral.susp, 10 ML PO QID for 30 Days, #2000 ML 0 Refills Prov:KASHIF SINGH MD 10/19/17 [Nystatin 5 Ml Udcup] 5 ML UDC No Conflict Check, 5 ML PO QID, #200 ML 0 Refills Prov:KASHIF SINGH MD 10/19/17 [Lansoprazole 3 Mg/Ml Susp] 3 MG/1 ML SUSP.RECON No Conflict Check, 10 ML PO QDAY, #200 ML 0 Refills Prov:KASHIF SINGH MD 10/19/17 Hyoscyamine Sulfate (HYOSCYAMINE SULFATE) 0.125 Mg Tab.subl, 1 TAB.SL SL ACHS, # 120 TAB.SL 0 Refills Prov:KASHIF SINGH MD 10/19/17 Amoxicillin/Potassium Clav (AMOX TR-K CLV 400-57/5 SUSP) 400 Mg/5 Ml Susp.recon , 10 ML PO Q12H, #100 ML 0 Refills Prov:KASHIF SINGH MD 10/19/17 Acetaminophen With Codeine (ACETAMINOPHEN-CODEINE SOLUTION) 118 Ml Solution, 5- 10 ML PO Q2H Y for PAIN, #200 ML 0 Refills Prov:KASHIF SINGH MD 10/19/17 Sucralfate (CARAFATE) 1 Gm Tablet, 1 GM PO QID, #60 TAB Take before meals and at bedtime. Crush the tablet and mix with water before taking. Prov:CAROLYNN VICKERS 10/13/17 Famotidine (PEPCID) 20 Mg Tablet, 20 MG PO QDAY, #10 TAB Prov:CAROLYNN VICKERS 10/13/17 Reported Medications Omeprazole (OMEPRAZOLE) Unknown Strength Capsule.dr, PO QDAY, CAP 10/14/17 Discontinued Reported Medications Ibuprofen (IBUPROFEN) 800 Mg Tablet, 1 TAB PO QAM, TAB 10/13/17 Follow up Referrals: General Surgery - 10/24/17 @ Surgery, General with Kashif Singh Md You have a follow up appointment scheduled with Dr. Singh on 10/24/17, at 12:30pm. Diet: Regular Activity: As Tolerated Special Instructions: Stay on a soft diet until your chest/back pain is gone then you can start experimenting with different foods to see how you tolerate them. Avoid foods with sharp edges such as chips for now. Take the nystatin, carafate (sucralfate), augmentin (amoxicillin/clavulinic acid) until you run out. Take the lansoprazole every morning before eating then wait for 1/2 hour to eat after taking this medicine. Take the hyoscyamine 4 times every day, before eating, to tamper down your esophageal spasms. Problem Qualifiers (1) Esophageal injury: Encounter type: subsequent encounter Qualified Codes: S27.819D - Unspecified injury of esophagus (thoracic part), subsequent encounter KASHIF SINGH MD Oct 19, 2017 09:22
[2017-10-19] MEDS: AMOX/CLAV 400 MG/5 ML 50ML BTL PO SCH (09:39)
[2017-10-19] MEDS: NYSTATIN 5 ML UDCUP PO SCH (09:39)
== END 2017-10-19 09:09 | disposition home or self-care (01) | DRG 392 ==
LOC: MED 12:25 → UNDOADMIN 12:25 → OBSVTOIN 13:09 → MED 13:09 → INTOOBSV 13:09
PROVIDERS: ADMIT Surgery; ATTEND Surgery
PROC: 0DD38ZX Extraction of Lower Esophagus, Via Natural or Artificial Opening Endoscopic, Diagnostic (ICD-10-PCS; principal; 2017-10-14)
PROC: 0DD18ZX Extraction of Upper Esophagus, Via Natural or Artificial Opening Endoscopic, Diagnostic (ICD-10-PCS; 2017-10-14)
PROC: 0DD28ZX Extraction of Middle Esophagus, Via Natural or Artificial Opening Endoscopic, Diagnostic (ICD-10-PCS; 2017-10-14)
DX: K21.0 Gastro-esophageal reflux disease with esophagitis (principal); B37.81 Candidal esophagitis; R07.89 Other chest pain
CPT/HCPCS: 36415; 74220; 82040; 82247; 82248; 82310; 82374; 82435; 82565; 82947; 83690; 84075; 84132; 84155; 84295; 84450; 84460; 84520; 85025; 87070; 87073; 87176; 88305; 88312; 88313; C9113; G0378; G0379; J0131; J1170; J2001; J2543; J2704; J7030; J7050

== ENCOUNTER 2017-12-09 02:35 | Day surgery (SDC) | payer BC ==
[2017-10-14 14:53] VITALS: Ht 177.8 cm; Wt 86.2 kg
[~2017-12-09] VITALS: Ht 177.8 cm; Wt 86.2 kg
[~2017-12-09 02:35] MED LIST changes: +ACET118E5 PO; +AMOX400S72 PO; +HYOS0.1224 SL; +LANS30CA63 PO; +LANSOPRAZOLE 3 MG/ML PO; +Nystatin 5 Ml Udcup PO; +SUCR1ORA17 PO
[2017-12-09 09:28] VITALS: BP 114/78
[2017-12-09] MEDS ORDERED: KETAMINE HCL-NS 50 MG/5 ML SYR ONE (09:30)
[2017-12-09] MEDS ORDERED: LIDOCAINE MPF 1% 5 ML VIAL ONE (09:30)
[2017-12-09] MEDS ORDERED: PROPOFOL EMUL(*) 10MG/ML 20 ML 40 ML ONE (09:30)
[2017-12-09] MEDS ORDERED: NORMOSOL R SOLN(*) 1000 ML BAG 1,000 ML IV PRN (09:50)
[2017-12-09] MEDS ORDERED: LIDOCAINE/SOD BICARB 8.4% SYR ID ONE (09:50)
[2017-12-09 11:05] VITALS: BP 94/66
--- NOTE | 2017-12-09 11:12 | Short(Outpt) Discharge Summary ---
Discharge Summary Reason for Hosp/Final Diag: (1) Erosive esophagitis Status: Chronic Hospital Course & Plan: EGD and colonoscopy completed without problems. Both were normal. (2) Colon cancer screening Status: Chronic Departure Discharge to: Home, Self Care Discharge Instructions Home Meds Active Scripts Lansoprazole (LANSOPRAZOLE) 30 Mg Capsule.dr, 1 CAP PO QDAY, #60 CAP 3 Refills Take 1st thing every morning and wait 30 minutes before eating Prov:KASHIF SINGH MD 11/11/17 Diet: Regular Activity: As Tolerated Special Instructions: Your upper endoscopy was completed without any problems and everything looked great! Your esophagitis has healed well! Continue taking the lansoprazole every day. Your colonoscopy was also completed without any problems and your prep was excellent (Good Job!!). I didn't find any polyps, cancers, or other abnormalities; it was completely normal. I recommend that you have another colonoscopy in 10 years for continued colorectal cancer screening. Please call my office to schedule a follow up appointment if your upper GI symptoms return, food hanging up in your esophagus, severe chest pain, etc. KASHIF SINGH MD Dec 09, 2017 11:10
[2017-12-09 11:15] VITALS: BP 109/61
[2017-12-09 11:30] VITALS: BP 111/71
[2017-12-09 11:52] VITALS: BP 114/85
[2017-12-09 11:53] VITALS: BP 104/82
== END 2017-12-09 12:10 | disposition home or self-care (01) ==
LOC: OR 02:35
PROVIDERS: ATTEND Surgery
DX: Z12.11 Encounter for screening for malignant neoplasm of colon (principal); K20.9 Esophagitis, unspecified
CPT/HCPCS: 00812; 43235; 45378; J2001; J2704; J3490